=== PATIENT | female | born 1960 | race American Indian/Alaskan Native ===

== ENCOUNTER 2016-06-16 13:06 | Emergency (ER) | payer OTHER ==
[2016-06-16] MEDS ORDERED: Sodium Chloride 0.9% 1,000 ML IV ONE (13:59)
--- NOTE | 2016-06-16 13:59 | C.PDOC ---
History Of Present Illness 55 yr old female presents to he ER with complaints of right quadrant pain, gradually developing over the past few days. Patient describes the pain as intermittent and sharp and worse with movement. Patient denies fever, chills, chest pain, SOB, nausea, vomiting, diarrhea, dysuria, hematuria, or any other active complaints. Ambulate to ED for evaluation, not in any apparent distress. Time Seen by Provider: 06/16/16 13:52 Chief Complaint (Nursing): Rib Injury History Per: Patient History/Exam Limitations: no limitations Onset/Duration Of Symptoms: Gradual (few days) Current Symptoms Are (Timing): Still Present Location Of Pain/Discomfort: RUQ, RLQ Past Medical History Reviewed: Historical Data, Nursing Documentation, Vital Signs Vital Signs: Last Vital Signs Temp 98.2 F 06/16/16 15:51 Pulse 76 06/16/16 15:51 Resp 16 06/16/16 15:51 BP 148/95 H 06/16/16 15:51 Pulse Ox 96 06/16/16 16:28 - Medical History PMH: Asthma Surgical History: - [facility] Procedures DRAINAGE OF R PLEURAL CAV WITH DRAIN DEV, PERC APPROACH (07/04/15) EXCISION OF RIGHT UPPER LUNG LOBE, OPEN APPROACH (07/04/15) INSPECTION OF TRACHEOBRONCHIAL TREE, ENDO (07/04/15) INTRODUCE OTH THERAP SUBST IN PLEURAL CAV, PERC (07/04/15) Family History: States: No Known Family Hx - Social History Hx Tobacco Use: Yes (wheat) Hx Alcohol Use: No Hx Substance Use: No - Immunization History Hx Tetanus Toxoid Vaccination: No Hx Influenza Vaccination: No Hx Pneumococcal Vaccination: No Review Of Systems Except As Marked, All Systems Reviewed And Found Negative. Constitutional: Negative for: Fever, Chills Cardiovascular: Negative for: Chest Pain Respiratory: Negative for: Shortness of Breath Gastrointestinal: Positive for: Abdominal Pain (Right quadrant pain ). Negative for: Nausea, Vomiting, Diarrhea, Constipation Genitourinary: Negative for: Dysuria Neurological: Negative for: Weakness, Numbness Physical Exam - Physical Exam Appears: Well, Non-toxic, No Acute Distress Skin: Normal Color, Warm, Dry, No Rash Eye(s): bilateral: Normal Inspection Ear(s): Bilateral: Normal Nose: Normal, No Discharge Oral Mucosa: Moist Throat: Normal, No Erythema, No Exudate, No Drooling Neck: Normal, Normal ROM, Supple Chest: Symmetrical Cardiovascular: Rhythm Regular Respiratory: Normal Breath Sounds, No Stridor, No Wheezing Gastrointestinal/Abdominal: Bowel Sounds (normal), Soft, Tenderness (RUQ tenderness), No Distention, No Guarding, No Rebound Back: Normal Inspection, No CVA Tenderness Extremity: Normal ROM, No Pedal Edema Neurological/Psych: Oriented x3, Normal Speech ED Course And Treatment - Laboratory Results Result Diagrams: 06/16/16 14:33 06/16/16 14:33 Lab Interpretation: Normal O2 Sat by Pulse Oximetry: 96 Pulse Ox Interpretation: Normal - CT Scan/US US - Abdomen Other Rad Studies (CT/US): Read By Radiologist, Radiology Report Reviewed CT/US Interpretation: Right upper quadrant ultrasound dated 06/16/2016. History : Right upper quadrant pain. Sonographic evaluation limited to the right upper quadrant performed. No prior study available comparison. Findings: The liver is upper limits of normal measuring approximately 17 cm in CC dimension. Limited demonstrates smooth contour and normal echotexture without mass collection or calcification. No obvious hepatic mass or collection. Gallbladder is physiologically distended. No evidence of intraluminal gallbladder calculi. . No pericholecystic fluid collections or sonographic Morrissey sign . Common bile duct measures approximately 4.3 mm. Visualized portions of the pancreas appear grossly unremarkable. Right kidney is normal. Impression: Ultrasound limited to the right upper quadrant of the abdomen as detailed above. Progress Note: On re-eavluation, pt is afebrile, hemodynamicaly stable. NO- toxic. Tolerate Po well in ED. PulsEOx 96% RA. ENT: no acute findings. neck : (-) meningeal sign. Lungs: CTA B/L, BS equal B/L. Abd: bengn, (-) guarding, (-) rebound, (-) localized tenderness. Back: (-) CVA tenderness. Blood work review and appears unremarcable. Abd US review- normal study. Pt has clinical findings c/w RUQ tenderness. Pt advised. ref. to f/u with PMD and GI in 2-3 days for re-eavl. returmn to ED if any worsening or new changes. Medical Decision Making Medical Decision Making: PLAN: * US - Abdomen * CBC * HCG Urine * Urinalysis * Toradol IVP * Sodium Chloride IV Disposition Counseled Patient/Family Regarding: Studies Performed, Diagnosis, Need For Followup, Rx Given - Disposition Referrals: [facility] at [facility] [Outside] Disposition: HOME/ ROUTINE Disposition Time: 15:55 Condition: STABLE Additional Instructions: Diet restriction to greasy, fatty, fried or spicy food Encourage fluids Follow up with PMD and GI in 2-3 days for re-evaluation. Return to ED if any worsening or new changes. 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 - Scribe Statement The provider has reviewed the documentation as recorded by the Scribe Kim Aldana All medical record entries made by the Valeriaibcurly were at my direction and personally dictated by me. I have reviewed the chart and agree that the record accurately reflects my personal performance of the history, physical exam, medical decision making, and the department course for this patient. I have also personally directed, reviewed, and agree with the discharge instructions and disposition.
[2016-06-16 14:40] LABS: BASO % 0.7 % (0.0-2.0); EOS # 0.1 K/uL (0.0-0.7); EOS % 2.8 % (0.0-4.0); HEMATOCRIT 38.9 % (34.0-47.0); LYMPH % 40.2 % (20.0-40.0); MEAN CELL VOLUME 93.1 fL (81.0-99.0); MEAN CORPUSCULAR HEMOGLOBIN 30.1 pg (27.0-31.0); MEAN CORPUSCULAR HGB CONC 32.3 g/dL (33.0-37.0); MEAN PLATELET VOLUME 8.2 fL (7.2-11.7); MONO # 0.4 K/uL (0.0-0.8); MONO % 7.5 % (0.0-10.0); RED CELL DISTRIBUTION WIDTH 13.5 % (11.5-14.5)
[2016-06-16 14:51] LABS: RBC URINE < 1 /hpf (0-3); URINE BACTERIA RARE (<OCC); URINE BILIRUBIN NEGATIVE (NEGATIVE); URINE BLOOD NEGATIVE (NEGATIVE); URINE COLOR Yellow (YELLOW); URINE GLUCOSE (UA) NORMAL (Normal); URINE KETONE NEGATIVE (NEGATIVE); URINE LEUKOCYTE ESTERASE NEG Leu/uL (Negative); URINE PROTEIN NEGATIVE (NEGATIVE); URINE UROBILINOGEN NORMAL mg/dL (0.2-1.0); WBC URINE 1 /hpf (0-5)
[2016-06-16 15:11] LABS: CHLORIDE 102 mmol/L (98-107); POTASSIUM 3.4 mmol/L (3.6-5.2); SODIUM 138 mmol/L (132-148)
[2016-06-16 15:13] LABS: ALB/GLOB RATIO 1.4 (1.0-2.1); AMYLASE 77 U/L (30-110); AST/SGOT 32 U/L (14-36); BILIRUBIN,TOTAL 0.3 mg/dL (0.2-1.3); CARBON DIOXIDE 23 mmol/L (22-30); GFR AFRICAN-AMERICAN > 60; TOTAL PROTEIN 6.9 g/dL (6.3-8.3)
[2016-06-16 15:14] LABS: ALKALINE PHOSPHATASE 71 U/L (38-126); ALT/SGPT 22 U/L (9-52); BLOOD UREA NITROGEN 16 mg/dL (7-17); CALCIUM 8.8 mg/dl (8.6-10.4); GLUCOSE,RANDOM 94 mg/dL (65-105)
--- NOTE | 2016-06-16 15:48 | US ---
Right upper quadrant ultrasound dated 06/16/2016. History: Right upper quadrant pain. Sonographic evaluation limited to the right upper quadrant performed. No prior study available comparison. Findings: The liver is upper limits of normal measuring approximately 17 cm in CC dimension. Limited demonstrates smooth contour and normal echotexture without mass collection or calcification. No obvious hepatic mass or collection. Gallbladder is physiologically distended. No evidence of intraluminal gallbladder calculi. . No pericholecystic fluid collections or sonographic Morrissey sign . Common bile duct measures approximately 4.3 mm. Visualized portions of the pancreas appear grossly unremarkable. Right kidney is normal. Impression: Ultrasound limited to the right upper quadrant of the abdomen as detailed above.
[2016-06-16 15:52] VITALS: PULSE 76; RESP 16; TEMP 98.2
[2016-06-16 16:28] VITALS: O2SAT 96
[2016-06-16 17:11] VITALS: BP 142/92
== END 2016-06-16 17:11 | disposition home or self-care (01) ==
LOC: C.ER 13:06
DX: R10.31 Right lower quadrant pain (principal); R10.11 Right upper quadrant pain
CPT/HCPCS: 76705; 80053; 81001; 82150; 83690; 84703; 85025; 96361; 96374; 99285; J1885; J7040

== ENCOUNTER 2016-09-15 13:40 | Emergency (ER) | payer OTHER ==
--- NOTE | 2016-09-15 14:26 | C.PDOC ---
History Of Present Illness 55 year old female presents to the ED with complaints of intermittent chest tightness and shortness of breath that is worse at night for one week. Patient notes waking up often in the middle of the night and feeling unable to breath. She states she has a history of asthma and is using her inhaler with insignificant resolution of symptoms. Patient denies any fever, chills, or other physical complaints at this time. Time Seen by Provider: 09/15/16 13:56 Chief Complaint (Nursing): Chest Pain History Per: Patient History/Exam Limitations: no limitations Onset/Duration Of Symptoms: Days (one week ) Current Symptoms Are (Timing): Still Present Quality: Tightness (chest tightness ) Associated Symptoms: Other (waking up in the middle of the night unable to breath ). denies: Nausea Exacerbating Factors: Other (lying down ) Recent travel outside of the [place]: No Past Medical History Reviewed: Historical Data, Nursing Documentation, Vital Signs Vital Signs: Last Vital Signs Temp 98.5 F 09/15/16 16:22 Pulse 73 09/15/16 16:22 Resp 18 09/15/16 16:22 BP 147/79 09/15/16 16:22 Pulse Ox 99 09/15/16 16:22 - Medical History PMH: Asthma Surgical History: - [facility] Procedures DRAINAGE OF R PLEURAL CAV WITH DRAIN DEV, PERC APPROACH (07/04/15) EXCISION OF RIGHT UPPER LUNG LOBE, OPEN APPROACH (07/04/15) INSPECTION OF TRACHEOBRONCHIAL TREE, ENDO (07/04/15) INTRODUCE OTH THERAP SUBST IN PLEURAL CAV, PERC (07/04/15) Family History: States: Unknown Family Hx - Social History Hx Tobacco Use: Yes (wheat) Hx Alcohol Use: No Hx Substance Use: No - Immunization History Hx Tetanus Toxoid Vaccination: No Hx Influenza Vaccination: No Hx Pneumococcal Vaccination: No Review Of Systems Constitutional: Negative for: Fever, Chills, Sweats Cardiovascular: Positive for: Other (ches tightness). Negative for: Palpitations Respiratory: Positive for: Cough (after using inhaler for SOB ), Shortness of Breath Gastrointestinal: Negative for: Nausea, Vomiting, Abdominal Pain, Diarrhea Neurological: Negative for: Headache Physical Exam - Physical Exam Appears: Non-toxic, No Acute Distress, Other (Patient is tearful on exam ) Skin: Warm, Dry Head: Atraumatic Oral Mucosa: Moist Neck: Supple Chest: Symmetrical, No Deformity Cardiovascular: Rhythm Regular Respiratory: No Rales, No Rhonchi, No Stridor, No Wheezing Gastrointestinal/Abdominal: Soft, No Tenderness, No Distention, No Guarding, No Rebound Extremity: Normal ROM, No Tenderness, No Pedal Edema Neurological/Psych: Oriented x3 ED Course And Treatment - Laboratory Results Result Diagrams: 09/15/16 14:51 09/15/16 14:51 ECG: Interpreted By Me, Viewed By Me ECG Interpretation: Normal Interpretation Of EC bmp with no accelerations and no depressions. O2 Sat by Pulse Oximetry: 97 (room air ) Medical Decision Making Medical Decision Making: Patient feeling better. Results discussed with patient. Normal troponin and BNP. CXR with chronic findings after partial lobectomy. Disposition Counseled Patient/Family Regarding: Studies Performed, Diagnosis, Need For Followup, Rx Given - Disposition Referrals: [facility] at [facility] [Outside] Disposition: HOME/ ROUTINE Disposition Time: 16:44 Condition: GUARDED Additional Instructions: Follow up with your doctor or our clinic. Take medications as indicated. Return to Emergency Department for any further concerns. Prescriptions: Albuterol 0.083% [Albuterol Sulfate 3 Ml] 0.5 ml IH BID #24 neb Albuterol HFA [Ventolin HFA 90 mcg/actuation (8 g)] 1 puff IH QID PRN #1 puff PRN Reason: Cough Prednisone [Deltasone] 60 mg PO DAILY #15 tablet Forms: General Discharge Instructions, Work Excuse - POA Present On Arrival: None - Clinical Impression Clinical Impression: Asthma exacerbation - Scribe Statement The provider has reviewed the documentation as recorded by the Scribcurly Adams All medical record entries made by the Scribe were at my direction and personally dictated by me. I have reviewed the chart and agree that the record accurately reflects my personal performance of the history, physical exam, medical decision making, and the department course for this patient. I have also personally directed, reviewed, and agree with the discharge instructions and disposition.
[2016-09-15] MEDS: Albuterol-Ipratrop 3 mg / 0.5 (3 ml) UD IH SCH ×3 (14:45→15:15)
[2016-09-15] MEDS ORDERED: Albuterol-Ipratrop 3 mg / 0.5 (3 ml) UD ONE (14:46)
[2016-09-15 15:02] LABS: BASO # 0.1 K/uL (0.0-0.2); BASO % 0.8 % (0.0-2.0); EOS # 0.4 K/uL (0.0-0.7); EOS % 7.1 % (0.0-4.0); HEMATOCRIT 42.3 % (34.0-47.0); LYMPH # 2.8 K/uL (1.0-4.3); LYMPH % 45.2 % (20.0-40.0); MEAN CELL VOLUME 93.3 fL (81.0-99.0); MEAN CORPUSCULAR HEMOGLOBIN 30.7 pg (27.0-31.0); MEAN CORPUSCULAR HGB CONC 32.9 g/dL (33.0-37.0); MEAN PLATELET VOLUME 8.1 fL (7.2-11.7); MONO # 0.4 K/uL (0.0-0.8); MONO % 6.6 % (0.0-10.0); NRBC % 0.1 % (0.0-2.0); RED CELL DISTRIBUTION WIDTH 14.1 % (11.5-14.5); WHITE BLOOD COUNT 6.3 K/uL (4.8-10.8)
[2016-09-15 15:11] LABS: CHLORIDE 109 mmol/L (98-107); POTASSIUM 3.4 mmol/L (3.6-5.2); SODIUM 140 mmol/L (132-148)
[2016-09-15 15:13] LABS: ALB/GLOB RATIO 1.4 (1.0-2.1); ALKALINE PHOSPHATASE 74 U/L (38-126); AST/SGOT 28 U/L (14-36); BILIRUBIN,TOTAL 0.6 mg/dL (0.2-1.3); CARBON DIOXIDE 20 mmol/L (22-30); GFR AFRICAN-AMERICAN > 60; TOTAL PROTEIN 7.3 g/dL (6.3-8.3)
[2016-09-15 15:14] LABS: ALT/SGPT 24 U/L (9-52); BLOOD UREA NITROGEN 11 mg/dL (7-17); CALCIUM 9.5 mg/dl (8.6-10.4); GLUCOSE,RANDOM 80 mg/dL (65-105)
--- NOTE | 2016-09-15 16:16 | RAD ---
PROCEDURE: CHEST RADIOGRAPH, 1 VIEW HISTORY: SOB COMPARISON: 02/09/2016 FINDINGS: LUNGS: Stable mild right lower lobe in costophrenic angle density is identified without interval change. No new infiltrate is identified. No CHF is seen. No pneumothorax is noted. Trachea is midline. PLEURA: No pneumothorax or pleural fluid seen. CARDIOVASCULAR: Unchanged. OSSEOUS STRUCTURES: No significant abnormalities. VISUALIZED UPPER ABDOMEN: Normal. OTHER FINDINGS: None. IMPRESSION: No new infiltrate. Stable nonspecific mild hazy density at the left lung base and costophrenic angle region which may suggest some mild chronic volume loss or scarring.
[2016-09-15 16:23] VITALS: BP 147/79; PULSE 73; RESP 18; TEMP 98.5
[2016-09-15 16:51] VITALS: O2SAT 97
== END 2016-09-15 17:11 | disposition home or self-care (01) ==
LOC: C.ER 13:40
DX: J45.901 Unspecified asthma with (acute) exacerbation (principal)

== ENCOUNTER 2016-10-16 15:47 | Emergency (ER) | payer OTHER ==
[2016-10-16 15:56] VITALS: TEMP 98.5
[2016-10-16 16:41] LABS: SQUAMOUS EPITHIAL 1 /hpf (0-5); URINE BILIRUBIN NEGATIVE (NEGATIVE); URINE BLOOD NEGATIVE (NEGATIVE); URINE CLARITY Hazy (Clear); URINE COLOR Yellow (YELLOW); URINE GLUCOSE (UA) NORMAL (Normal); URINE LEUKOCYTE ESTERASE 1+ Leu/uL (Negative); URINE NITRATE NEGATIVE (NEGATIVE); URINE PROTEIN NEGATIVE (NEGATIVE); URINE UROBILINOGEN NORMAL mg/dL (0.2-1.0)
[2016-10-16] MEDS ORDERED: cefTRIAXone (Rocephin) 250 mg Inj IM STA (16:54)
[2016-10-16] MEDS ORDERED: cefTRIAXone 250 MG in Lidocaine Hydrochloride 0.9 ML IM ONE (17:00)
--- NOTE | 2016-10-16 17:14 | C.PDOC ---
History Of Present Illness 55 y/o female presents to the ED for evaluation of dysuria, pressure sensation when urinating, mild vaginal discharge, and external vulvar itching for the last 2 days. Notes having UTI in past, and states her symptoms feel similar to that. Patient admits to having intercourse with one partner, and admits to condom use. Patient states she can have possible STD. Otherwise, denies any hematuria, abdominal pain, fever, or chills. Time Seen by Provider: 10/16/16 15:57 Chief Complaint (Nursing): Female Genitourinary History Per: Patient History/Exam Limitations: no limitations Onset/Duration Of Symptoms: Days (2) Current Symptoms Are (Timing): Still Present Quality Of Discomfort: Burning Associated Symptoms: Urinary Symptoms. denies: Fever, Chills, Nausea, Vomiting , Diarrhea, Loss Of Appetite, Back Pain, Chest Pain, Constipation Alleviating Factors: None Recent travel outside of the [place]: No Additional History Per: Patient Abnormal Vaginal Bleeding: No Past Medical History Reviewed: Historical Data, Nursing Documentation, Vital Signs Vital Signs: Last Vital Signs Temp 98.5 F 10/16/16 15:52 Pulse 72 10/16/16 17:31 Resp 18 10/16/16 17:31 BP 126/72 10/16/16 17:31 Pulse Ox 98 10/16/16 17:31 - Medical History PMH: Asthma Denies: Chronic Kidney Disease Surgical History: - [facility] Procedures DRAINAGE OF R PLEURAL CAV WITH DRAIN DEV, PERC APPROACH (07/04/15) EXCISION OF RIGHT UPPER LUNG LOBE, OPEN APPROACH (07/04/15) INSPECTION OF TRACHEOBRONCHIAL TREE, ENDO (07/04/15) INTRODUCE OTH THERAP SUBST IN PLEURAL CAV, PERC (07/04/15) Family History: States: Unknown Family Hx - Social History Hx Tobacco Use: Yes (wheat) Hx Alcohol Use: No Hx Substance Use: No - Immunization History Hx Tetanus Toxoid Vaccination: No Hx Influenza Vaccination: No Hx Pneumococcal Vaccination: No Review Of Systems Except As Marked, All Systems Reviewed And Found Negative. Constitutional: Negative for: Fever, Chills Gastrointestinal: Negative for: Abdominal Pain Genitourinary: Positive for: Dysuria, Vaginal Discharge, Other (external vulvar itching, pressure sensation on urination). Negative for: Frequency, Incontinence, Hematuria, Vaginal Bleeding, Pelvic Pain Musculoskeletal: Negative for: Back Pain Physical Exam - Physical Exam Appears: Non-toxic, No Acute Distress Skin: Normal Color, Warm, Dry Head: Atraumatic, Normacephalic Eye(s): bilateral: Normal Inspection Cardiovascular: Rhythm Regular, No Murmur Respiratory: Normal Breath Sounds, No Rales, No Rhonchi, No Wheezing Gastrointestinal/Abdominal: Normal Exam, Soft, No Tenderness, No Guarding, No Rebound Pelvic: No Vaginal Bleeding, Vaginal Discharge (mild thin white discharge in vault), Other (External vulva: mild erythema and irritated in appearance, no lesions) Extremity: Bilateral: Atraumatic, Normal ROM Neurological/Psych: Oriented x3, Normal Speech, Normal Cognition ED Course And Treatment O2 Sat by Pulse Oximetry: 96 (on RA) Pulse Ox Interpretation: Normal Progress Note: Plan: UA, chlamydia/GC, urine culture. Patient was given Rocephin , and Azithromycin. Disposition Counseled Patient/Family Regarding: Studies Performed, Diagnosis, Need For Followup, Rx Given - Disposition Referrals: [facility] at [facility] [Outside] Disposition: HOME/ ROUTINE Disposition Time: 17:20 Condition: STABLE Additional Instructions: FOLLOW UP WITH YOUR DOCTOR/CLINIC IN 1-2 DAYS USE MEDICATIONS DIRECTED RETURN TO ER IF SYMPTOMS WORSEN Prescriptions: Ciprofloxacin [Cipro] 1 tab PO BID #14 tab Fluconazole [Diflucan] 150 mg PO DAILY #2 tab Miconazole 2% [Miconazole 2% Cream] 1 ea EXT BID #1 tube Instructions: Urinary Tract Infection in Women (ED), Vaginal Discharge (ED) Print Language: FAROESE - Clinical Impression Clinical Impression: UTI (urinary tract infection), Vaginal discharge, Vulvar candidiasis - Scribe Statement The provider has reviewed the documentation as recorded by the Shahrzad Govea All medical record entries made by the Shahrzad were at my direction and personally dictated by me. I have reviewed the chart and agree that the record accurately reflects my personal performance of the history, physical exam, medical decision making, and the department course for this patient. I have also personally directed, reviewed, and agree with the discharge instructions and disposition.
[2016-10-16 17:32] VITALS: BP 126/72; PULSE 72; RESP 18
[2016-10-16 18:36] VITALS: O2SAT 96
== END 2016-10-16 17:33 | disposition home or self-care (01) ==
LOC: C.ER 15:47
DX: N39.0 Urinary tract infection, site not specified (principal); B37.3 Candidiasis of vulva and vagina
CPT/HCPCS: 81001; 87086; 87491; 87591; 96372; 99284; J0696

== ENCOUNTER 2016-12-14 12:57 | Emergency (ER) | payer OTHER ==
[2016-12-14 13:19] VITALS: BP 125/88; PULSE 67; RESP 20; TEMP 98.6; O2SAT 96
[2016-12-14] MEDS ORDERED: Albuterol-Ipratrop 3 mg / 0.5 (3 ml) UD INH STA (14:39)
--- NOTE | 2016-12-14 14:42 | C.PDOC ---
History Of Present Illness 55 y/o female ex smoker, with hx asthma, max pf approx 300, no intubations, not steroid dependent, c/o dry cough, chest pain with cough only for 4 days, no t better with albuterol mdi at home, no fever or chills. Time Seen by Provider: 12/14/16 14:30 Chief Complaint (Nursing): Chest Pain History Per: Patient History/Exam Limitations: no limitations Onset/Duration Of Symptoms: Days (4 days ) Current Symptoms Are (Timing): Still Present Quality: "Pain" Associated Symptoms: denies: Nausea, Dyspnea, Diaphoresis Alleviating Factors: None Recent travel outside of the [place]: No Past Medical History Reviewed: Historical Data, Nursing Documentation, Vital Signs Vital Signs: Last Vital Signs Temp 98.6 F 12/14/16 13:18 Pulse 67 12/14/16 13:18 Resp 20 12/14/16 13:18 BP 125/88 12/14/16 13:18 Pulse Ox 96 12/14/16 15:32 - Medical History PMH: Asthma Surgical History: - [facility] Procedures DRAINAGE OF R PLEURAL CAV WITH DRAIN DEV, PERC APPROACH (07/04/15) EXCISION OF RIGHT UPPER LUNG LOBE, OPEN APPROACH (07/04/15) INSPECTION OF TRACHEOBRONCHIAL TREE, ENDO (07/04/15) INTRODUCE OTH THERAP SUBST IN PLEURAL CAV, PERC (07/04/15) Family History: States: Unknown Family Hx - Social History Hx Tobacco Use: Yes (wheat) Hx Alcohol Use: No Hx Substance Use: No - Immunization History Hx Tetanus Toxoid Vaccination: No Hx Influenza Vaccination: No Hx Pneumococcal Vaccination: No Review Of Systems Constitutional: Negative for: Fever, Chills Cardiovascular: Positive for: Chest Pain. Negative for: Palpitations Respiratory: Positive for: Cough Gastrointestinal: Negative for: Nausea, Vomiting Physical Exam - Physical Exam Appears: Non-toxic, No Acute Distress (speaks in full sentences) Skin: Warm, Dry Head: Atraumatic, Normacephalic Oral Mucosa: Moist Throat: No Erythema, No Exudate Neck: Normal ROM, Supple Chest: Symmetrical, No Deformity, No Tenderness Cardiovascular: Rhythm Regular, No Murmur Respiratory: No Accessory Muscle Use, No Rales, No Rhonchi, No Wheezing Extremity: No Pedal Edema, No Calf Tenderness Neurological/Psych: Oriented x3, Normal Speech, Normal Cognition ED Course And Treatment ECG: Interpreted By Me, Viewed By Me ECG Rhythm: Sinus Rhythm Interpretation Of ECG: nsr lvh, lae, no st-t changes Rate From EC O2 Sat by Pulse Oximetry: 96 (room air ) Progress Note: EKG was ordered and patient was given albuterol and predniSONE. Medical Decision Making Medical Decision Makin55 y/o female with asthma exaerbation x 4 days; no wheezing noted on my exam, pt has wheezy sounding cough. pt with pf 150 prior to any treamtents, will give nebs and re-eval. 329 pm pt feels better after neb tx with no wheezing on re-exam of lungs. pf 250 with good effort, will d/c home wiht steroids., f;u pmd. Disposition Counseled Patient/Family Regarding: Diagnosis, Need For Followup, Rx Given - Disposition Referrals: [facility] at [facility] [Outside] Disposition: HOME/ ROUTINE Disposition Time: 15:31 Condition: IMPROVED Additional Instructions: Use inhaler 2 puffs every 6 hours. Take steroids as prescribed. Follow up with your doctor in 1-2 days. Return to ER for any worse symptoms. 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 - Scribe Statement The provider has reviewed the documentation as recorded by the Scribe Crissy Adams All medical record entries made by the Scribe were at my direction and personally dictated by me. I have reviewed the chart and agree that the record accurately reflects my personal performance of the history, physical exam, medical decision making, and the department course for this patient. I have also personally directed, reviewed, and agree with the discharge instructions and disposition.
--- NOTE | 2016-12-15 14:56 | CARD ---
APPROVED REPORT EKG Measurement Heart [id number] <Conclusion> Normal sinus rhythm Possible Left atrial enlargement Left ventricular hypertrophy Abnormal ECG
== END 2016-12-14 15:49 | disposition home or self-care (01) ==
LOC: C.ER 12:57
DX: J45.909 Unspecified asthma, uncomplicated (principal); Z87.891 Personal history of nicotine dependence

== ENCOUNTER 2017-01-11 15:48 | Emergency (ER) | payer OTHER ==
[2017-01-11] MEDS ORDERED: Albuterol-Ipratrop 3 mg / 0.5 (3 ml) UD ONE ×2 (15:59→16:35)
[2017-01-11] MEDS ORDERED: Albuterol-Ipratrop 3 mg / 0.5 (3 ml) UD INH STA ×2 (16:14→16:15)
[2017-01-11] MEDS ORDERED: Magnesium Sulfate 1 gm in D5W 1 GM/100 ML BAG IVPB ONE ×2 (16:30→17:10)
--- NOTE | 2017-01-11 16:46 | RAD ---
PROCEDURE: CHEST RADIOGRAPH, 1 VIEW HISTORY: SOB COMPARISON: Comparison chest 09/15/2016 FINDINGS: LUNGS: Linear atelectasis and or scarring changes extending to the medial right cesar diaphragmatic surface. Slight elevation right hemidiaphragm possibly due to scalloping or eventration. There also appears be mild atelectasis left lower lung field. PLEURA: No pneumothorax or pleural fluid seen. CARDIOVASCULAR: Heart appears enlarged. OSSEOUS STRUCTURES: No significant abnormalities. VISUALIZED UPPER ABDOMEN: Normal. OTHER FINDINGS: None. IMPRESSION: Linear atelectasis and or scarring changes extending to the medial right cesar diaphragmatic surface. Slight elevation right hemidiaphragm possibly due to scalloping or eventration. There also appears be mild atelectasis left lower lung field.
[2017-01-11] MEDS: Magnesium Sulfate 1 gm in D5W 1 GM/100 ML BAG IVPB SCH ×2 (16:52→17:12)
[2017-01-11 16:53] LABS: BASO # 0.1 K/uL (0.0-0.2); BASO % 1.3 % (0.0-2.0); EOS % 14.3 % (0.0-4.0); HEMATOCRIT 40.4 % (34.0-47.0); LYMPH # 3.1 K/uL (1.0-4.3); LYMPH % 45.4 % (20.0-40.0); MEAN CELL VOLUME 90.2 fL (81.0-99.0); MEAN CORPUSCULAR HEMOGLOBIN 30.5 pg (27.0-31.0); MEAN CORPUSCULAR HGB CONC 33.8 g/dL (33.0-37.0); MEAN PLATELET VOLUME 7.9 fL (7.2-11.7); MONO # 0.5 K/uL (0.0-0.8); MONO % 7.4 % (0.0-10.0); NRBC % 0.1 % (0.0-2.0); RED CELL DISTRIBUTION WIDTH 14.8 % (11.5-14.5); WHITE BLOOD COUNT 6.8 K/uL (4.8-10.8)
--- NOTE | 2017-01-11 17:05 | C.PDOC ---
History Of Present Illness 56 yr old female presents to the ER for her usual asthma symptoms for the past 4 days. Patient reports of a dry cough. States she has been using her albuterol nebulizer and albuterol pump with minimal relief. Unknown sick contact. Patient denies fever, chest pain, nausea, vomiting, weakness or numbness. Time Seen by Provider: 01/11/17 16:10 Chief Complaint (Nursing): Shortness Of Breath History Per: Patient History/Exam Limitations: no limitations Onset/Duration Of Symptoms: Days (4) Current Symptoms Are (Timing): Still Present Past Medical History Reviewed: Historical Data, Nursing Documentation, Vital Signs Vital Signs: Last Vital Signs Temp 98.7 F 01/11/17 18:45 Pulse 73 01/11/17 18:45 Resp 18 01/11/17 18:45 BP 150/100 H 01/11/17 18:45 Pulse Ox 100 01/11/17 18:45 - Medical History PMH: Asthma Surgical History: - [facility] Procedures DRAINAGE OF R PLEURAL CAV WITH DRAIN DEV, PERC APPROACH (07/04/15) EXCISION OF RIGHT UPPER LUNG LOBE, OPEN APPROACH (07/04/15) INSPECTION OF TRACHEOBRONCHIAL TREE, ENDO (07/04/15) INTRODUCE OTH THERAP SUBST IN PLEURAL CAV, PERC (07/04/15) Family History: States: No Known Family Hx - Social History Hx Tobacco Use: Yes Hx Alcohol Use: No Hx Substance Use: No - Immunization History Hx Tetanus Toxoid Vaccination: No Hx Influenza Vaccination: No Hx Pneumococcal Vaccination: No Review Of Systems Except As Marked, All Systems Reviewed And Found Negative. Constitutional: Negative for: Fever Cardiovascular: Negative for: Chest Pain Respiratory: Positive for: Cough (Dry) Gastrointestinal: Negative for: Nausea, Vomiting Neurological: Negative for: Weakness, Numbness Physical Exam - Physical Exam Appears: Non-toxic, No Acute Distress Skin: Warm, Dry, No Rash Head: Atraumatic, Normacephalic Oral Mucosa: Moist Chest: Symmetrical, No Tenderness Cardiovascular: Rhythm Regular, No Murmur Respiratory: Wheezing (Expirtory wheezing bilateral), Other ((+) Good air entry. ) Gastrointestinal/Abdominal: Normal Exam, Soft, No Tenderness, No Guarding, No Rebound Extremity: Normal ROM, Other (No peripheral edema) Neurological/Psych: Oriented x3, Normal Speech ED Course And Treatment - Laboratory Results Result Diagrams: 01/11/17 16:48 01/11/17 16:48 ECG: Interpreted By Me, Viewed By Me ECG Rhythm: Sinus Rhythm ECG Interpretation: Normal Rate From EC (BPM) O2 Sat by Pulse Oximetry: 98 (RA) Pulse Ox Interpretation: Normal - Other Rad CXR X-Ray: Viewed By Me, Read By Radiologist Interpretation: PROCEDURE: CHEST RADIOGRAPH, 1 VIEW. HISTORY: SOB. COMPARISON: Comparison chest 09/15/2016. FINDINGS: LUNGS: Linear atelectasis and or scarring changes extending to the medial right cesar diaphragmatic surface. Slight elevation right hemidiaphragm possibly due to scalloping or eventration. There also appears be mild atelectasis left lower lung field. PLEURA: No pneumothorax or pleural fluid seen. CARDIOVASCULAR: Heart appears enlarged. OSSEOUS STRUCTURES: No significant abnormalities. VISUALIZED UPPER ABDOMEN: Normal. OTHER FINDINGS: None. IMPRESSION: Linear atelectasis and or scarring changes extending to the medial right cesar diaphragmatic surface. Slight elevation right hemidiaphragm possibly due to scalloping or eventration. There also appears be mild atelectasis left lower lung field. Progress Note: On reeval, patient reports improvement of symptoms. Lungs sound clear, no wheezing noted. Medical Decision Making Medical Decision Making: PLAN: * CXR * EKG * CBC * CMP * Troponin * Influenza * Albuterol IH * Magnesium IVPB * Solumedrol IVP Disposition - Disposition Referrals: [facility] [Outside] [facility] [Outside] [facility], [Non-Staff] - Disposition: HOME/ ROUTINE Disposition Time: 15:30 Condition: IMPROVED Additional Instructions: Thank you for letting us take care of you today. Your provider was Dr. Byrd. You were treated for asthma exacerbation. The emergency medical care you received today was directed at your acute symptoms. If you were prescribed any medication, please fill it and take as directed. It may take several days for your symptoms to resolve. Return to the Emergency Department if your symptoms worsen, do not improve, or if you have any other problems. Please contact your doctor or call one of the physicians/clinics you have been referred to that are listed on the Patient Visit Information form that is included in your discharge packet. Bring any paperwork you were given at discharge with you along with any medications you are taking to your follow up visit. Our treatment cannot replace ongoing medical care by a primary care provider (PCP) outside of the emergency department. Thank you for allowing the [facility] team to be part of your care today. Follow up with your doctor in 2-3 days for re-evaluation and further management. Prescriptions: Albuterol 0.083% [Albuterol 0.083% Inhal Cora (2.5 mg/3 ml) UD] 2.5 mg IH Q6 PRN #1 unit PRN Reason: Wheezing Budesonide/Formoterol Fumarate [Symbicort] 2 aer IH BID #1 aer predniSONE [Prednisone] 40 mg PO DAILY #10 tab Instructions: Asthma (ED), How to Use a Nebulizer (ED) Forms: Work Excuse - Clinical Impression Clinical Impression: Asthma exacerbation - Scribe Statement The provider has reviewed the documentation as recorded by the Valeriaibcurly Aldana Provider Attestation: All medical record entries made by the Valeriaibe were at my direction and personally dictated by me. I have reviewed the chart and agree that the record accurately reflects my personal performance of the history, physical exam, medical decision making, and the department course for this patient. I have also personally directed, reviewed, and agree with the discharge instructions and disposition.
[2017-01-11 17:07] LABS: CHLORIDE 105 mmol/L (98-107); POTASSIUM 3.7 mmol/L (3.6-5.2); SODIUM 137 mmol/L (132-148)
[2017-01-11 17:09] LABS: ALB/GLOB RATIO 1.3 (1.0-2.1); AST/SGOT 28 U/L (14-36); BILIRUBIN,TOTAL 0.7 mg/dL (0.2-1.3); CARBON DIOXIDE 22 mmol/L (22-30); GFR AFRICAN-AMERICAN > 60; TOTAL PROTEIN 7.7 g/dL (6.3-8.3)
[2017-01-11 17:10] LABS: ALKALINE PHOSPHATASE 90 U/L (38-126); ALT/SGPT 32 U/L (9-52); BLOOD UREA NITROGEN 14 mg/dL (7-17); CALCIUM 9.5 mg/dl (8.6-10.4); GLUCOSE,RANDOM 85 mg/dL (65-105)
[2017-01-11 17:20] VITALS: RESP 18
[2017-01-11 19:23] VITALS: BP 150/100; PULSE 73; TEMP 98.7
[2017-01-11 23:32] VITALS: O2SAT 98
--- NOTE | 2017-01-12 19:14 | CARD ---
APPROVED REPORT EKG Measurement Heart [id number] <Conclusion> Normal sinus rhythm Possible Left atrial enlargement Left ventricular hypertrophy Nonspecific T wave abnormality Abnormal ECG
== END 2017-01-11 18:50 | disposition home or self-care (01) ==
LOC: C.ER 15:48
DX: J45.901 Unspecified asthma with (acute) exacerbation (principal)
CPT/HCPCS: 71010; 80053; 84484; 85025; 87804; 93005; 94640; 96365; 96375; 99285; J2930; J3475

== ENCOUNTER 2017-03-12 10:08 | Emergency (ER) | payer OTHER, SELFPAY ==
[2017-03-12 10:20] VITALS: O2SAT 98
[2017-03-12 12:25] LABS: BASO % 0.8 % (0.0-2.0); EOS # 0.2 K/uL (0.0-0.7); EOS % 3.2 % (0.0-4.0); HEMATOCRIT 41.3 % (34.0-47.0); LYMPH # 2.1 K/uL (1.0-4.3); LYMPH % 39.1 % (20.0-40.0); MEAN CELL VOLUME 90.9 fL (81.0-99.0); MEAN CORPUSCULAR HEMOGLOBIN 30.2 pg (27.0-31.0); MEAN CORPUSCULAR HGB CONC 33.3 g/dL (33.0-37.0); MEAN PLATELET VOLUME 8.6 fL (7.2-11.7); MONO # 0.5 K/uL (0.0-0.8); MONO % 8.9 % (0.0-10.0); NRBC % 0.1 % (0.0-2.0); RED CELL DISTRIBUTION WIDTH 14.5 % (11.5-14.5); WHITE BLOOD COUNT 5.3 K/uL (4.8-10.8)
--- NOTE | 2017-03-12 12:26 | RAD ---
PROCEDURE: Chest dated 03/12/2017 HISTORY: chest pain COMPARISON: Comparison chest dated 01/11/2017. . FINDINGS: LUNGS: Previously noted minor linear atelectasis right lung base slightly improved. Persistent tenting may be present though less well seen due to low lung volumes. . Lung willard are otherwise clear. PLEURA: No pneumothorax or pleural fluid seen. CARDIOVASCULAR: Normal. OSSEOUS STRUCTURES: No significant abnormalities. VISUALIZED UPPER ABDOMEN: Normal. OTHER FINDINGS: None. IMPRESSION: Previously suspected minor linear atelectasis right lung base slightly improved. Previously noted minor tenting right hemidiaphragm is not well seen possibly due to low lung volumes. . Lung willard are otherwise clear.
[2017-03-12 12:36] LABS: ALB/GLOB RATIO 1.1 (1.0-2.1); ALKALINE PHOSPHATASE 84 U/L (38-126); ALT/SGPT 53 U/L (9-52); AST/SGOT 31 U/L (14-36); BILIRUBIN,TOTAL 0.5 mg/dL (0.2-1.3); BLOOD UREA NITROGEN 13 mg/dL (7-17); CALCIUM 8.7 mg/dl (8.6-10.4); CARBON DIOXIDE 29 mmol/L (22-30); CHLORIDE 105 mmol/L (98-107); GFR AFRICAN-AMERICAN > 60; GLUCOSE,RANDOM 104 mg/dL (65-105); POTASSIUM 3.8 mmol/L (3.6-5.2); SODIUM 137 mmol/L (132-148)
[2017-03-12 12:58] VITALS: BP 140/90; PULSE 67; RESP 13; TEMP 98.3
--- NOTE | 2017-03-12 14:54 | C.PDOC ---
History Of Present Illness 56 y/o female presents to ED c/o intermittent right chest pain since 12 midnight. Pt denies any pain at this time. Denies cough, shortness of breath, or recent travel. Time Seen by Provider: 03/12/17 10:37 Chief Complaint (Nursing): Chest Pain History Per: Patient History/Exam Limitations: no limitations Past Medical History Reviewed: Historical Data, Nursing Documentation, Vital Signs Vital Signs: Last Vital Signs Temp 98.3 F 03/12/17 12:56 Pulse 67 03/12/17 12:56 Resp 13 03/12/17 12:56 BP 140/90 03/12/17 12:56 Pulse Ox 98 03/12/17 14:56 - Medical History PMH: Asthma, Pneumothorax Denies: Chronic Kidney Disease Surgical History: - [facility] Procedures DRAINAGE OF R PLEURAL CAV WITH DRAIN DEV, PERC APPROACH (07/04/15) EXCISION OF RIGHT UPPER LUNG LOBE, OPEN APPROACH (07/04/15) INSPECTION OF TRACHEOBRONCHIAL TREE, ENDO (07/04/15) INTRODUCE OTH THERAP SUBST IN PLEURAL CAV, PERC (07/04/15) Family History: States: Unknown Family Hx - Social History Hx Tobacco Use: Yes Hx Alcohol Use: No Hx Substance Use: No - Immunization History Hx Tetanus Toxoid Vaccination: No Hx Influenza Vaccination: No Hx Pneumococcal Vaccination: No Review Of Systems Except As Marked, All Systems Reviewed And Found Negative. Constitutional: Negative for: Fever, Chills Cardiovascular: Positive for: Chest Pain. Negative for: Palpitations, Light Headedness Respiratory: Negative for: Cough, Shortness of Breath Gastrointestinal: Negative for: Nausea, Vomiting, Abdominal Pain Neurological: Negative for: Headache, Dizziness Physical Exam - Physical Exam Appears: Non-toxic, No Acute Distress Skin: Normal Color, Warm, Dry Head: Atraumatic, Normacephalic Eye(s): bilateral: Normal Inspection Oral Mucosa: Moist Chest: Symmetrical, No Tenderness Cardiovascular: Rhythm Regular, No Murmur Respiratory: Normal Breath Sounds, No Rales, No Rhonchi, No Wheezing Gastrointestinal/Abdominal: Soft, No Tenderness Back: Normal Inspection Extremity: Normal ROM, No Pedal Edema Neurological/Psych: Oriented x3, Normal Speech ED Course And Treatment - Laboratory Results Result Diagrams: 03/12/17 12:20 03/12/17 12:20 ECG: Interpreted By Me, Viewed By Me ECG Rhythm: Sinus Rhythm ECG Interpretation: No Acute Changes Interpretation Of ECG: Normal axis, normal intervals. Rate From EC O2 Sat by Pulse Oximetry: 98 Pulse Ox Interpretation: Normal Progress Note: Blood work, EKG, CXR ordered and reviewed. Disposition - Disposition Referrals: [facility], [Non-Staff] - Disposition: HOME/ ROUTINE Disposition Time: 12:40 Condition: GOOD Additional Instructions: Thank you for letting us take care of you today. The emergency medical care you received today was directed at your acute symptoms. If you were prescribed any medication, please fill it and take as directed. It may take several days for your symptoms to resolve. Return to the Emergency Department if your symptoms worsen, do not improve, or if you have any other problems. Please contact your doctor or call one of the physicians/clinics you have been referred to that are listed on the Patient Visit Information form that is included in your discharge packet. Bring any paperwork you were given at discharge with you along with any medications you are taking to your follow up visit. Our treatment cannot replace ongoing medical care by a primary care provider (PCP) outside of the emergency department. Thank you for allowing the [facility] team to be part of your care today. Follow up with your doctor in 3-4 days for re-evaluation and further management. Instructions: Noncardiac Chest Pain (ED) Forms: Work Excuse - Clinical Impression Clinical Impression: Non-cardiac chest pain - Scribe Statement The provider has reviewed the documentation as recorded by the Valeriaibcurly Govea All medical record entries made by the Scribe were at my direction and personally dictated by me. I have reviewed the chart and agree that the record accurately reflects my personal performance of the history, physical exam, medical decision making, and the department course for this patient. I have also personally directed, reviewed, and agree with the discharge instructions and disposition.
--- NOTE | 2017-03-15 22:27 | CARD ---
APPROVED REPORT EKG Measurement Heart [id number] <Conclusion> Normal sinus rhythm Voltage criteria for left ventricular hypertrophy Abnormal ECG
== END 2017-03-12 13:45 | disposition home or self-care (01) ==
LOC: C.ER 10:08
DX: R07.89 Other chest pain (principal)

== ENCOUNTER 2017-06-05 14:14 | Emergency (ER) | payer SELFPAY ==
[2017-06-05 14:44] VITALS: PULSE 65; BMI 24.5
--- NOTE | 2017-06-05 15:02 | C.PDOC ---
History Of Present Illness Patient is a 56 y/o female, with a Hx of asthma, who presents to the ED with a complaint of chest pain for the last 1 week. Patient describes pain as a left- sided dull ache that lasts seconds at a time. pt states "it feels like gas pain " Denies any SOB, fever, or cough and admits she is pain free at this time. No other physical complaints at this time. Time Seen by Provider: 06/05/17 14:44 Chief Complaint (Nursing): Chest Pain History Per: Patient History/Exam Limitations: no limitations Onset/Duration Of Symptoms: Days (1 day) Current Symptoms Are (Timing): Gone Quality: Dull Recent travel outside of the [place]: No Past Medical History Reviewed: Historical Data, Nursing Documentation, Vital Signs Vital Signs: Last Vital Signs Temp 98.3 F 06/05/17 14:25 Pulse 65 06/05/17 14:25 Resp 17 06/05/17 14:25 BP 140/99 H 06/05/17 14:44 Pulse Ox 98 06/05/17 15:39 - Medical History PMH: Asthma, Pneumothorax Denies: Chronic Kidney Disease Surgical History: - [facility] Procedures DRAINAGE OF R PLEURAL CAV WITH DRAIN DEV, PERC APPROACH (07/04/15) EXCISION OF RIGHT UPPER LUNG LOBE, OPEN APPROACH (07/04/15) INSPECTION OF TRACHEOBRONCHIAL TREE, ENDO (07/04/15) INTRODUCE OTH THERAP SUBST IN PLEURAL CAV, PERC (07/04/15) Family History: States: No Known Family Hx - Social History Hx Tobacco Use: Yes (former smoker) Hx Alcohol Use: No Hx Substance Use: No - Immunization History Hx Tetanus Toxoid Vaccination: No Hx Influenza Vaccination: No Hx Pneumococcal Vaccination: No Review Of Systems Except As Marked, All Systems Reviewed And Found Negative. Constitutional: Negative for: Fever Cardiovascular: Positive for: Chest Pain (left-sided) Respiratory: Negative for: Cough, Shortness of Breath Physical Exam - Physical Exam Appears: Well, Non-toxic, No Acute Distress Skin: Normal Color, Warm, Dry Head: Atraumatic, Normacephalic Oral Mucosa: Moist Chest: Symmetrical, No Tenderness Cardiovascular: Rhythm Regular, No Murmur Respiratory: Normal Breath Sounds, No Rales, No Rhonchi, No Wheezing Gastrointestinal/Abdominal: Soft, No Tenderness Neurological/Psych: Oriented x3, Normal Speech, Normal Cognition ED Course And Treatment - Laboratory Results Result Diagrams: 06/05/17 15:05 06/05/17 15:05 ECG: Interpreted By Me, Viewed By Me ECG Rhythm: Sinus Rhythm Interpretation Of ECG: LVH Rate From EC (bpm) O2 Sat by Pulse Oximetry: 98 Pulse Ox Interpretation: Normal Medical Decision Making Medical Decision Making: atypical cp. labs imaging pending Plan: EKG, blood work, CXR, and HCG urine ordered. CXR Impression: Right apical pleural thickening. Mild bibasilar infiltrates or atelectasis. Mild cardiomegaly. Elevation of right hemidiaphragm. pt reassesed pain free. states she feels well for dc. no cough, no fever, suspect bibasilar infiltrates, lungs cta. notified of results and advise outpt fu and return precauitons Disposition - Disposition Referrals: Humza Tate MD [Staff Provider] - Disposition: HOME/ ROUTINE Disposition Time: 15:38 Condition: STABLE Additional Instructions: please follow up with your doctor. return to er with worsening symptoms or concerns. Instructions: Chest Pain Forms: [facility] (Romansh), Work Excuse - Clinical Impression Clinical Impression: Chest pain - Scribe Statement The provider has reviewed the documentation as recorded by the Scribe Adrianna Diaz All medical record entries made by the Scribe were at my direction and personally dictated by me. I have reviewed the chart and agree that the record accurately reflects my personal performance of the history, physical exam, medical decision making, and the department course for this patient. I have also personally directed, reviewed, and agree with the discharge instructions and disposition.
[2017-06-05 15:08] LABS: BASO % 0.9 % (0.0-2.0); EOS # 0.1 K/uL (0.0-0.7); EOS % 1.9 % (0.0-4.0); HEMOGLOBIN 13.4 g/dL (11.0-16.0); LYMPH # 1.8 K/uL (1.0-4.3); LYMPH % 32.2 % (20.0-40.0); MEAN CELL VOLUME 90.3 fL (81.0-99.0); MEAN CORPUSCULAR HEMOGLOBIN 31.3 pg (27.0-31.0); MEAN CORPUSCULAR HGB CONC 34.7 g/dL (33.0-37.0); MEAN PLATELET VOLUME 8.2 fL (7.2-11.7); MONO # 0.5 K/uL (0.0-0.8); MONO % 8.6 % (0.0-10.0); NEUT # 3.2 K/uL (1.8-7.0); NEUT % 56.4 % (50.0-75.0); RBC 4.28 Mil/uL (3.80-5.20); RED CELL DISTRIBUTION WIDTH 14.3 % (11.5-14.5); WHITE BLOOD COUNT 5.7 K/uL (4.8-10.8)
[2017-06-05 15:19] LABS: PROTHROMBIN TIME 10.7 SECONDS (9.7-12.2)
[2017-06-05 15:24] LABS: ALB/GLOB RATIO 1.5 (1.0-2.1); ALBUMIN 4.2 g/dL (3.5-5.0); ALT/SGPT 21 U/L (9-52); AST/SGOT 28 U/L (14-36); BLOOD UREA NITROGEN 14 mg/dL (7-17); CALCIUM 8.9 mg/dl (8.6-10.4); GFR AFRICAN-AMERICAN > 60; GFR NON-AFRICAN AMERICAN > 60
--- NOTE | 2017-06-05 15:28 | RAD ---
HISTORY: chest pain COMPARISON: Chest x-ray performed 03/12/17 TECHNIQUE: Chest PA and lateral FINDINGS: LUNGS: Right apical pleural thickening. Bibasilar infiltrates or atelectasis. Please note that chest x-ray has limited sensitivity for the detection of pulmonary masses. PLEURA: No significant pleural effusion identified. No definite pneumothorax . CARDIOVASCULAR: Mild cardiomegaly. OSSEOUS STRUCTURES: Degenerative changes. VISUALIZED UPPER ABDOMEN: Elevation of the right hemidiaphragm. OTHER FINDINGS: None. IMPRESSION: Right apical pleural thickening. Mild bibasilar infiltrates or atelectasis. Mild cardiomegaly. Elevation of right hemidiaphragm.
[2017-06-05 15:51] VITALS: BP 154/98; RESP 20; TEMP 98.8; O2SAT 99
--- NOTE | 2017-06-07 20:24 | CARD ---
APPROVED REPORT EKG Measurement Heart [id number] <Conclusion> Normal sinus rhythm Possible Left atrial enlargement Left ventricular hypertrophy Abnormal ECG
== END 2017-06-05 15:50 | disposition home or self-care (01) ==
LOC: C.ER 14:14
DX: R07.9 Chest pain, unspecified (principal); Z87.891 Personal history of nicotine dependence

== ENCOUNTER 2017-07-23 13:37 | Emergency (ER) | payer OTHER, SELFPAY ==
[2017-07-23 13:38] VITALS: BMI 24.5
[2017-07-23 13:48] VITALS: BP 147/97; PULSE 71; RESP 18; TEMP 98.6; O2SAT 99
[2017-07-23] MEDS ORDERED: Albuterol 0.083% Inhal Sol (2.5 mg/3 mL) UD INH STA (13:57)
--- NOTE | 2017-07-23 13:57 | C.PDOC ---
History Of Present Illness 56-YEAR-OLD FEMALE, PRESENTS TO THE EMERGENCY DEPARTMENT WITH COMPLAINTS OF ASTHMA EXACERBATION TODAY. NORMALLY SHE HAS ACCESS TO NEB MACHINE BUT DOESN'T HAVE IT TODAY. PS IF SHE HAD HER MACHINE SHE "WOULD NOT BE HERE" PATIENT ALSO SUFFERING FROM COLD SX. STATES "I JUST NEED A TREATMENT. DENIES FEVER. NO OTHER COMPLAINT. OF NOTE, PT ALSO STATES SHE DOES NOT FEEL LIKE SHE NEEDS PREDNISONE. EXAM OCCASIONAL EXP WHEEZE REMAINDER NEG Time Seen by Provider: 07/23/17 13:54 Chief Complaint (Nursing): Cough, Cold, Congestion History Per: Patient History/Exam Limitations: no limitations Onset/Duration Of Symptoms: Days Current Symptoms Are (Timing): Still Present Past Medical History Reviewed: Historical Data, Nursing Documentation, Vital Signs Vital Signs: Last Vital Signs Temp 98.6 F 07/23/17 13:45 Pulse 71 07/23/17 13:45 Resp 18 07/23/17 13:45 BP 147/97 H 07/23/17 13:45 Pulse Ox 99 07/23/17 14:01 - Medical History PMH: Asthma, Pneumothorax Surgical History: - [facility] Procedures DRAINAGE OF R PLEURAL CAV WITH DRAIN DEV, PERC APPROACH (07/04/15) EXCISION OF RIGHT UPPER LUNG LOBE, OPEN APPROACH (07/04/15) INSPECTION OF TRACHEOBRONCHIAL TREE, ENDO (07/04/15) INTRODUCE OTH THERAP SUBST IN PLEURAL CAV, PERC (07/04/15) Family History: States: No Known Family Hx - Social History Hx Tobacco Use: Yes (former smoker) Hx Alcohol Use: Yes Hx Substance Use: No - Immunization History Hx Tetanus Toxoid Vaccination: No Hx Influenza Vaccination: No Hx Pneumococcal Vaccination: No Review Of Systems Constitutional: Negative for: Fever Respiratory: Positive for: Cough, Shortness of Breath, Wheezing Gastrointestinal: Negative for: Vomiting Musculoskeletal: Negative for: Back Pain Physical Exam - Physical Exam Appears: Non-toxic, No Acute Distress Skin: Warm, Dry, No Rash Head: Normacephalic Eye(s): bilateral: PERRL Nose: Normal Oral Mucosa: Moist Lips: Normal Appearing Neck: Normal ROM Chest: Symmetrical Cardiovascular: Rhythm Regular, No Murmur Respiratory: No Decreased Breath Sounds, No Accessory Muscle Use, Wheezing ( OCCASIONAL, EXP) Extremity: Normal ROM, No Deformity, No Swelling Neurological/Psych: Oriented x3, Normal Speech ED Course And Treatment O2 Sat by Pulse Oximetry: 99 (RA) Pulse Ox Interpretation: Normal Medical Decision Making Medical Decision Making: Plan: * Peak flow * neb treatment * Reassess and Disposition Disposition Counseled Patient/Family Regarding: Studies Performed, Diagnosis, Need For Followup, Rx Given - Disposition Referrals: YOUR,PMD [Other] Disposition: HOME/ ROUTINE Disposition Time: 15:15 Condition: IMPROVED Prescriptions: Budesonide/Formoterol Fumarate [Symbicort] 1 aer IH ASDIR #1 aer Montelukast Sodium [Singulair] 10 mg PO DAILY #30 tablet Instructions: Asthma, Adult (DC) Forms: [employer] (Puerto [place]ican), Work Excuse - Clinical Impression Clinical Impression: Asthma exacerbation - Scribe Statement The provider has reviewed the documentation as recorded by the Scribe (Lele Johns) All medical record entries made by the Scribe were at my direction and personally dictated by me. I have reviewed the chart and agree that the record accurately reflects my personal performance of the history, physical exam, medical decision making, and the department course for this patient. I have also personally directed, reviewed, and agree with the discharge instructions and disposition.
[2017-07-23] MEDS ORDERED: Albuterol 0.083% Inhal Sol (2.5 mg/3 mL) UD ONE (14:15)
== END 2017-07-23 15:27 | disposition home or self-care (01) ==
LOC: C.ER 13:37
DX: J45.901 Unspecified asthma with (acute) exacerbation (principal)

== ENCOUNTER 2018-04-06 13:39 | Emergency (ER) | payer OTHER | END 2018-04-06 14:56 | disposition home or self-care (01) | LOC: C.ER 13:39 ==